=== PATIENT | male | born 2000 | race African-American/Black ===

== ENCOUNTER 2018-12-12 20:23 | Emergency (ER) | payer OTHER ==
[2018-12-12] MEDS ORDERED: NS 0.9% 1000 ML** 1,000 ML IV ONE (22:38)
[2018-12-12] MEDS ORDERED: Metoclopramide IV* 5 MG/ML 2 ML VIAL IV SLOW PU ONE (22:38)
[2018-12-12] MEDS ORDERED: diPHENhydraMINE IV* 50 MG/ML 1 ml VIAL (BENADRYL) IV ONE (22:38)
[2018-12-12] MEDS ORDERED: Ketorolac INJ* 30 MG/ML 1 ML VIAL IV PUSH ONE (22:38)
--- NOTE | 2018-12-12 22:38 | ED ---
Headache - HPI Summary HPI Summary: Pt is a 18 y/o M presenting to the ED with a chief complaint of a headache onset four days ago. He states it started in a localized spot above his L protestant , and the next day it moved to his sinuses, and the next day moved to his bilateral temples. The pt reports nausea. He denies vomiting, fever, or photophobia. Looking at screens increases the pain, nothing alleviates it. - History Of Current Complaint Chief Complaint: EDHeadache Stated Complaint: HEADACHE/NAUSEA/VISION PROBLEM PER PT Time Seen by Provider: 12/12/18 22:30 Hx Obtained From: Patient Onset/Duration: Sudden Onset, Started days ago, Still Present Initially Headache Was: Moderate Currently Pain Is: Moderate Timing: Constant, Days Character: Pressure Location of Headache: Other: - location moves, see HPI summary Aggravating Factor: Other - screens Allevating Factors: Nothing Associated Signs And Symptoms: Nausea - Allergies/Home Medications Allergies/Adverse Reactions: Allergies Allergy/AdvReac Type Severity Reaction Status Date / Time Penicillins Allergy Severe Unknown Verified 06/21/18 12:20 Reaction Details bee stings Allergy Severe Swelling Uncoded 06/21/18 12:20 PMH/Surg Hx/FS Hx/Imm Hx Previously Healthy: Yes Endocrine/Hematology History: Denies: Hx Diabetes Cardiovascular History: Denies: Hx Hypertension, Hx Pacemaker/ICD, Other Cardiovascular Problems/ Disorders Respiratory History: Reports: Hx Asthma - Albuterol, hasn't used in months. Thinks he is outgrowning Denies: Other Respiratory Problems/Disorders GI History: Denies: Other GI Disorders History: Denies: Hx Renal Disease, Other Problems/Disorders Musculoskeletal History: Reports: Other Musculoskeletal History - Ganglion right wrist Sensory History: Denies: Hx Contacts or Glasses, Hx Hearing Aid Opthamlomology History: Denies: Hx Contacts or Glasses Neurological History: Reports: Hx Nerve Disease - ganglion cyst right wrist Denies: Other Neuro Impairments/Disorders Psychiatric History: Reports: Hx Anxiety Denies: Hx Panic Disorder - Surgical History Surgery Procedure, Year, and Place: HERNIA Hx Anesthesia Reactions: No Infectious Disease History: No Infectious Disease History: Denies: Traveled Outside the [place] in Last 30 Days - Family History Known Family History: Negative: Renal Disease - Social History Alcohol Use: Occasionally Hx Substance Use: No Substance Use Type: Reports: None Hx Tobacco Use: No Smoking Status (MU): Never Smoked Tobacco Review of Systems Negative: Fever Negative: Photophobia Positive: Nausea. Negative: Vomiting Positive: Headache All Other Systems Reviewed And Are Negative: Yes Physical Exam - Summary Physical Exam Summary: VITAL SIGNS: Reviewed. GENERAL: Patient is a well-developed and nourished male who is lying comfortable in the stretcher. Patient is not in any acute respiratory distress. HEAD AND FACE: No signs of trauma. No ecchymosis, hematomas or skull depressions. No sinus tenderness. EYES: PERRLA, EOMI x 2, No injected conjunctiva, no nystagmus. EARS: Hearing grossly intact. Ear canals and tympanic membranes are within normal limits. MOUTH: Oropharynx within normal limits. NECK: Supple, trachea is midline, no adenopathy, no JVD, no carotid bruit, no c- spine tenderness, neck with full ROM. CHEST: Symmetric, no tenderness at palpation LUNGS: Clear to auscultation bilaterally. No wheezing or crackles. CVS: Regular rate and rhythm, S1 and S2 present, no murmurs or gallops appreciated. ABDOMEN: Soft, non-tender. No signs of distention. No rebound no guarding, and no masses palpated. Bowel sounds are normal. EXTREMITIES: FROM in all major joints, no edema, no cyanosis or clubbing. NEURO: Alert and oriented x 3. No acute neurological deficits. Speech is normal and follows commands. SKIN: Dry and warm GCS: 15 Triage Information Reviewed: Yes Vital Signs On Initial Exam: Initial Vitals Temp Pulse Resp BP Pulse Ox 98.8 F 84 15 125/66 97 12/12/18 20:37 12/12/18 20:37 12/12/18 20:37 12/12/18 20:37 12/12/18 20:37 Vital Signs Reviewed: Yes Diagnostics - Vital Signs Vital Signs Temp Pulse Resp BP Pulse Ox 12/12/18 20:37 98.8 F 84 15 125/66 97 - Laboratory Result Diagrams: 12/12/18 22:49 12/12/18 22:49 Lab Statement: Any lab studies that have been ordered have been reviewed, and results considered in the medical decision making process. - CT Brain CT CT Interpretation Completed By: Radiologist Summary of CT Findings: Negative noncontrast CT without change from 09/06/2012. ED physician has reviewed this report. Sinuses CT CT Interpretation Completed By: Radiologist Summary of CT Findings: Negative CT sinuses. No sinus mucosal thickening. ED physician has reviewed this report. Headache Course/Dx - Course Course Of Treatment: Pt is a 18 y/o M presenting to the ED with a chief complaint of a headache onset four days ago. The pt reports nausea. He denies vomiting, fever, or photophobia. Looking at screens increases the pain, nothing alleviates it. Brain CT shows negative noncontrast CT without change from 09/06. Sinuses CT shows negative CT sinuses. No sinus mucosal thickening. Results discussed with the pt. He will be d/c'ed with a dx of headache and instructions to f/u with his primary care provider. The pt is agreeable with this plan. - Diagnoses Provider Diagnoses: Headache Discharge - Sign-Out/Discharge Documenting (check all that apply): Patient Departure Patient Received Moderate/Deep Sedation with Procedure: No - Discharge Plan Condition: Stable Disposition: HOME Referrals: Saurabh White, [employer] [Primary Care Provider] - Additional Instructions: Please follow up with your primary care provider in 2-3 days. Return to the emergency department with any new or worsening symptoms. - Attestation Statements Document Initiated by Scribe: Yes Documenting Scribe: Kathy Chisholm Provider For Whom Jose Luis is Documenting (Include Credential): Tanesha Wolf MD. Scribe Attestation: Kathy Polanco scribed for aTnesha Wolf MD. on 12/13/18 at 0001. Status of Scribe Document: Ready
[2018-12-12 22:55] LABS: ABS Basophils 0 10^3/ul (0-0.2); ABS Eosinophils 0 10^3/ul (0-0.6); ABS Lymphocytes 2.6 10^3/ul (1.0-4.8); ABS Monocytes 0.4 10^3/ul (0-0.8); ABS Neutrophils 2.2 10^3/ul (1.5-7.7); ABS Nucleated RBC 0 10^3/ul; Eosinophil % 0.8 %; Hematocrit 46 % (36-46); Hemoglobin 15.8 g/dL (14.0-18.0); Lymphocyte % 49.6 %; Mean Corpuscular HGB Conc 34 g/dL (31-36); Mean Corpuscular Hemoglobin 27 pg (27-31); Mean Corpuscular Volume 79 fL (80-94); Mean Platelet Volume 8.2 fL (7.4-10.4); Nucleated Red Blood Cells % 0.3; Platelet Count 202 10^3/uL (150-450); Red Blood Count 5.84 10^6 /uL (4.18-5.48); Red Cell Distribution Width 14 % (10.5-15); White Blood Count 5.3 10^3/uL (3.5-10.8)
[2018-12-12 23:13] LABS: Albumin 4.9 g/dL (3.2-5.2); Albumin/Globulin Ratio 1.8 (1-3); BUN/Creatinine Ratio 11.6 (8-20); Calcium 10.1 mg/dL (8.6-10.3); EGFR African American 101.1 (>60); EGFR Non-African American 83.6 (>60); Globulin 2.8 g/dL (2-4); Potassium 4.3 mmol/L (3.5-5.0); Total Bilirubin 0.7 mg/dL (0.2-1.0); Total Protein 7.7 g/dL (6.4-8.9)
[2018-12-13 00:27] VITALS: BP 101/54
== END 2018-12-13 00:27 | disposition home or self-care (01) ==
LOC: ED 20:23
DX: R51 Headache (principal); Z88.0 Allergy status to penicillin
CPT/HCPCS: 36415; 70450; 70486; 80053; 85025; 86703; 96361; 96374; 96375; 99283; J1200; J1885; J2765

== ENCOUNTER 2019-05-18 10:58 | Emergency (ER) | payer SELFPAY ==
[2019-05-18 11:17] VITALS: BP 111/78
--- NOTE | 2019-05-18 11:19 | UC ---
Knee Pain HPI - HPI Summary HPI Summary: 19-year-old male presents with complaints of persistent left knee pain. States 3 weeks ago he was break dancing and came down with his left leg bent underneath him causing a hyperflexion injury to the knee. States he felt a "pop " in the knee at that time. Was able to walk and bear weight after the injury. He was evaluated at [facility] urgent care 2 days later and states he had a normal x-ray at that time and that he was recommended physical therapy. Patient presents today for evaluation because he has continued to have pain and discomfort in the knee. Denies any numbness or tingling. - History of Current Complaint Stated Complaint: LEG INJURY Time Seen by Provider: 05/18/19 11:11 Hx Obtained From: Patient - Allergies/Home Medications Allergies/Adverse Reactions: Allergies Allergy/AdvReac Type Severity Reaction Status Date / Time Penicillins Allergy Severe Unknown Verified 05/18/19 11:15 Reaction Details bee stings Allergy Severe Swelling Uncoded 05/18/19 11:15 PMH/Surg Hx/FS Hx/Imm Hx Previously Healthy: Yes - Surgical History Surgical History: Yes Surgery Procedure, Year, and Place: HERNIA - Family History Known Family History: Positive: Non-Contributory - Social History Occupation: Employed Full-time Lives: With Family Alcohol Use: Occasionally Substance Use Type: None Smoking Status (MU): Never Smoked Tobacco - Immunization History Most Recent Influenza Vaccination: 2012 Vaccination Up to Date: Yes Review of Systems All Other Systems Reviewed And Are Negative: Yes Constitutional: Positive: Negative Skin: Positive: Negative Respiratory: Positive: Negative Cardiovascular: Positive: Negative Gastrointestinal: Positive: Negative Genitourinary: Positive: Negative Motor: Negative: Weakness Neurovascular: Negative: Decreased Sensation Musculoskeletal: Positive: Other: - See HPI Neurological: Positive: Negative Is Patient Immunocompromised?: No Physical Exam - Summary Physical Exam Summary: GENERAL APPEARANCE: Well developed, well nourished, alert and cooperative, and appears to be in no acute distress. CARDIAC: Normal S1 and S2. No S3, S4 or murmurs. Rhythm is regular. There is no peripheral edema, cyanosis or pallor. Extremities are warm and well perfused. Capillary refill is less than 2 seconds. Peripheral pulses intact. LUNGS: Clear to auscultation without rales, rhonchi, wheezing or diminished breath sounds. ABDOMEN: Positive bowel sounds. Soft, nondistended, nontender. No guarding or rebound. No masses or hepatosplenomegally. MUSKULOSKELETAL: Normal muscular development. Normal gait. EXTREMITIES: Mild tenderness to the medial aspect of the left knee joint without gross deformity, ecchymosis, erythema, or edema. Full ROM. No laxity. Circulation and sensation intact. SKIN: Skin normal color, texture and turgor. Triage Information Reviewed: Yes Vital Signs Reviewed: Yes Knee Pain Course/Dx - Course Course Of Treatment: 19-year-old male presents with complaints of persistent left knee pain. States 3 weeks ago he was break dancing and came down with his left leg bent underneath him causing a hyperflexion injury to the knee. States he felt a "pop " in the knee at that time. Was able to walk and bear weight after the injury. He was evaluated at [facility] urgent care 2 days later and states he had a normal x-ray at that time and that he was recommended physical therapy. Patient presents today for evaluation because he has continued to have pain and discomfort in the knee. Denies any numbness or tingling. Afebrile. VSS. Patient had mild tenderness to the medial aspect of the left knee joint without gross deformity, ecchymosis, erythema, or edema. Full ROM. No laxity. Circulation and sensation intact. Remainder of exam unremarkable. I discussed with the patient that based on his history and physical I did not feel a repeat of a plain knee x-ray is warranted at this time and that he would be better served with evaluation by orthopedic surgery as he probably needs an MRI for further evaluation of injury to the soft tissues of the knee. Patient is agreeable to this. Recommending continued conservative treatment with OTC analgesics and RICE. He is to call and make an appointment with ortho in 5-7 days. Anticipatory guidance and warning symptoms reviewed with patient. Verbalizes understanding and agrees with POC. - Differential Dx/Diagnosis Provider Diagnosis: Left knee pain Discharge ED - Sign-Out/Discharge Documenting (check all that apply): Patient Departure All imaging exams completed and their final reports reviewed: No Studies - Discharge Plan Condition: Stable Disposition: HOME Patient Education Materials: Knee Pain (ED) Referrals: Vero Rogers MD [Medical Doctor] - 5 Days (Call today for an appointment.) Additional Instructions: Rest the knee as much as possible. You may walk and bear weight as tolerated. You should avoid strenuous activities or any activity that causes pain. Apply ice to the affected area for 15-20 minutes at least 4 times a day to help with the pain and swelling. Use an DEDE wrap or compression sleeve to help manage swelling. Take acetaminophen (Tylenol) or ibuprofen (Advil, Motrin) according to directions as needed for pain. Follow up with orthopedic surgery in 5-7 days if symptoms do not improve. Call for appointment. Seek immediate medical attention if you have severe pain not managed with pain medication, you are unable to walk or bear any weight, develop numbness or tingling in the leg, foot, or toes, or have any worsening of symptoms. - Billing Disposition and Condition Condition: STABLE Disposition: Home
== END 2019-05-18 11:36 | disposition home or self-care (01) ==
LOC: UCEAST 10:58
DX: M25.562 Pain in left knee (principal); Z88.0 Allergy status to penicillin
CPT/HCPCS: 99211; G0463

== ENCOUNTER 2019-05-21 00:05 | Emergency (ER) | payer SELFPAY ==
[2019-05-21] MEDS ORDERED: LORazepam INJ* 2 MG/ML 1 ML VIAL IM ONE (00:12)
[2019-05-21] MEDS ORDERED: diPHENhydraMINE IV* 50 MG/ML 1 ml VIAL (BENADRYL) IM ONE (00:12)
[2019-05-21] MEDS ORDERED: Haloperidol INJ IV/IM* 5 MG/ML AMP IM ONE (00:12)
[2019-05-21] MEDS ORDERED: LORazepam INJ* 2 MG/ML 1 ML VIAL ONE (00:13)
[2019-05-21] MEDS ORDERED: Haloperidol INJ IV/IM* 5 MG/ML AMP ONE (00:17)
[2019-05-21] MEDS ORDERED: diPHENhydraMINE IV* 50 MG/ML 1 ml VIAL (BENADRYL) ONE (00:17)
--- NOTE | 2019-05-21 00:29 | ED ---
Substance Abuse/Use - HPI Summary HPI Summary: LEVEL 5 CAVEAT - ALCOHOL INTOXICATION This patient is a 19 year old M presenting to [facility] by EMS with a chief complaint of alcohol intoxication since prior to arrival. Per EMS, Pt drank alcohol and took a multitude of drugs; then fell down. Pt hit back of head. - History Of Current Complaint Chief Complaint: EDSubstanceAbuse Stated Complaint: ETOH PER EMS Hx Obtained From: EMS Onset/Duration of Drug/ETOH Abuse: Hours Overdose Characteristics: Oral Timing Of Abuse: Binge Use Character: Manic Aggravating Factor(s): Nothing Alleviating Factor(s): Nothing Associated Signs And Symptoms: Agitated, Nausea, Vomiting Related Hx: Possible Multi Drug Ingestion - Allergies/Home Medications Allergies/Adverse Reactions: Allergies Allergy/AdvReac Type Severity Reaction Status Date / Time Penicillins Allergy Severe Unknown Verified 05/21/19 05:12 Reaction Details bee stings Allergy Severe Swelling Uncoded 05/21/19 05:12 PMH/Surg Hx/FS Hx/Imm Hx Previously Healthy: No - LEVEL 5 CAVEAT - ALCOHOL INTOXICATION Endocrine/Hematology History: Denies: Hx Diabetes Cardiovascular History: Denies: Hx Hypertension, Hx Pacemaker/ICD, Other Cardiovascular Problems/ Disorders Respiratory History: Reports: Hx Asthma - Albuterol, hasn't used in months. Thinks he is outgrowning Denies: Other Respiratory Problems/Disorders GI History: Denies: Other GI Disorders History: Denies: Hx Renal Disease, Other Problems/Disorders Musculoskeletal History: Reports: Other Musculoskeletal History - Ganglion right wrist Sensory History: Denies: Hx Contacts or Glasses, Hx Hearing Aid Opthamlomology History: Denies: Hx Contacts or Glasses Neurological History: Reports: Hx Nerve Disease - ganglion cyst right wrist Denies: Other Neuro Impairments/Disorders Psychiatric History: Reports: Hx Anxiety Denies: Hx Panic Disorder - Surgical History Surgery Procedure, Year, and Place: HERNIA Hx Anesthesia Reactions: No Infectious Disease History: No Infectious Disease History: Denies: Traveled Outside the [place] in Last 30 Days - Family History Known Family History: Negative: Renal Disease - Social History Occupation: Student Alcohol Use: Occasionally Hx Substance Use: No Substance Use Type: Reports: None Hx Tobacco Use: No Smoking Status (MU): Never Smoked Tobacco - Additional Comments History Additional Comments: LEVEL 5 CAVEAT - ALCOHOL INTOXICATION Review of Systems Negative: Fever Positive: Other - head pain All Other Systems Reviewed And Are Negative: No - Comments Additional Review of Systems Comments: LEVEL 5 CAVEAT - ALCOHOL INTOXICATION Physical Exam - Summary Physical Exam Summary: LEVEL 5 CAVEAT - ALCOHOL INTOXICATION Appearance: Well-appearing, Well-nourished, lying in bed comfortably; Awake and alert uncooperative, refusing needed intervention, Intoxicated. Skin: Warm, dry, no obvious rash Eyes: sclera anicteric, no conjunctival pallor ENT: mucous membranes moist, pharynx appears normal HEAD: Occipital hematoma Neck: Supple, nontender Respiratory: Clear to auscultation, no signs of respiratory distress Cardiovascular: Normal S1, S2. No murmurs. Normal distal pulses in tibial and radial bilaterally. Abdomen: Soft, nontender, normal active bowel sounds present Musculoskeletal: Normal, Strength/ROM Intact Neurological: A&Ox3, awake and alert, mentation is normal, speech is fluent and appropriate Psychiatric: affect is normal, does not appear anxious or depressed Triage Information Reviewed: Yes Vital Signs On Initial Exam: Initial Vitals Temp Pulse Resp BP Pulse Ox 98.4 F 109 14 136/92 98 05/21/19 00:08 05/21/19 00:08 05/21/19 00:08 05/21/19 00:08 05/21/19 00:08 Vital Signs Reviewed: Yes Diagnostics - Vital Signs Vital Signs Temp Pulse Resp BP Pulse Ox 05/21/19 00:08 98.4 F 109 14 136/92 98 - Laboratory Result Diagrams: 05/21/19 00:42 05/21/19 00:42 Lab Statement: Any lab studies that have been ordered have been reviewed, and results considered in the medical decision making process. - CT Brain CT CT Interpretation Completed By: Radiologist Summary of CT Findings: Brain CT reveals, per radiologist, No acute intracranial abnormality. ED physician has reviewed this radiology report. Cervical Spine CT CT Interpretation Completed By: Radiologist Summary of CT Findings: Cervical Spine CT reveals, per radiologist, IMPRESSION: No acute abnormality. ED physician has reviewed this radiology report. Course/Dx - Course Course Of Treatment: LEVEL 5 CAVEAT - ALCOHOL INTOXICATION. This patient is a 19 year old M presenting to [facility] by EMS with a chief complaint of alcohol intoxication since prior to arrival. Per EMS, Pt drank alcohol and took a multitude of drugs; then fell down. Pt hit back of head. Physical exam findings are nml, except pt is intoxicated and uncooperative. Pt has a occipital hematoma. Brain CT reveals, per radiologist, No acute intracranial abnormality. ED physician has reviewed this radiology report. Cervical Spine CT reveals, per radiologist, IMPRESSION: No acute abnormality. ED physician has reviewed this radiology report. Blood work obtained. Serum Alcohol is 101. U cannabinoids Screen is a presumptive positive. In the ED course the patient was given Benadryl IV, Haldol Inj IV, and Ativan. Patient will be discharged. The patient is agreeable with this plan. - Diagnoses Provider Diagnoses: Alcohol intoxication, Head injury, acute Discharge ED - Sign-Out/Discharge Documenting (check all that apply): Patient Departure - Discharge Patient Received Moderate/Deep Sedation with Procedure: No - Discharge Plan Condition: Improved Disposition: HOME Patient Education Materials: Abuse of Alcohol (ED), Polysubstance Abuse (ED) Referrals: [facility] [Outside] Saurabh White, [employer] [Primary Care Provider] - - Billing Disposition and Condition Condition: IMPROVED Disposition: Home - Attestation Statements Document Initiated by Janele: Yes Documenting Scribe: Filomena Wren Provider For Whom Scribe is Documenting (Include Credential): Carrillo Cervantes MD Scribe Attestation: Filomena Polanco scribed for Carrillo Cervantes MD on 05/22/19 at 0618. Scribe Documentation Reviewed: Yes Provider Attestation: The documentation as recorded by the [email or web address] accurately reflects the service I personally performed and the decisions made by me, Carrillo Cervantes MD Status of Scribe Document: Viewed
[2019-05-21 00:54] LABS: ABS Monocytes 0.6 10^3/ul (0-0.8); ABS Neutrophils 5.2 10^3/ul (1.5-7.7); Eosinophil % 0.3 %; Hematocrit 40 % (42-52); Hemoglobin 13.4 g/dL (14.0-18.0); Mean Corpuscular HGB Conc 34 g/dL (31-36); Mean Corpuscular Hemoglobin 27 pg (27-31); Mean Corpuscular Volume 80 fL (80-94); Mean Platelet Volume 8.3 fL (7.4-10.4); Nucleated Red Blood Cells % 0.2; Platelet Count 187 10^3/uL (150-450); Red Blood Count 4.99 10^6 /uL (4.18-5.48); Red Cell Distribution Width 13 % (10-15); White Blood Count 7.9 10^3/uL (3.5-10.8)
[2019-05-21 01:10] LABS: Albumin 4.3 g/dL (3.2-5.2); Albumin/Globulin Ratio 1.9 (1-3); BUN/Creatinine Ratio 12.3 (8-20); Calcium 8.5 mg/dL (8.6-10.3); EGFR African American 106.7 (>60); EGFR Non-African American 88.2 (>60); Globulin 2.3 g/dL (2-4); Potassium 3.2 mmol/L (3.5-5.0); Total Bilirubin 0.4 mg/dL (0.2-1.0); Total Protein 6.6 g/dL (6.4-8.9)
[2019-05-21 01:25] LABS: Urine Benzodiazepine Screen None Detected (None Detect); Urine Opiates Screen None Detected (None Detect)
[2019-05-21 06:41] VITALS: BP 100/42
== END 2019-05-21 06:39 | disposition home or self-care (01) ==
LOC: ED 00:05
DX: F10.929 Alcohol use, unspecified with intoxication, unspecified (principal); S09.90XA Unspecified injury of head, initial encounter; X58.XXXA Exposure to other specified factors, initial encounter; Y92.9 Unspecified place or not applicable; J45.909 Unspecified asthma, uncomplicated; F41.9 Anxiety disorder, unspecified; Z79.899 Other long term (current) drug therapy; Z88.0 Allergy status to penicillin
CPT/HCPCS: 36415; 70450; 72125; 80053; 80307; 80320; 85025; 96372; 99284; G0480; J1200; J1630; J2060

== ENCOUNTER 2019-07-18 23:45 | Emergency (ER) | payer SELFPAY ==
--- NOTE | 2019-07-19 01:10 | ED ---
Neck Pain - HPI Summary HPI Summary: The patient is a 19 y/o M presenting to [facility] with a chief complaint of intermittent pain in the left posterior neck onset two days ago. He reports that he noticed a knot in the left posterior neck two days ago, and he has since been experiencing nausea and dizziness, but he has had a stiff neck for about a week. He also notes a lump in the thoracic back along the medial border of the left scapula for a while. He denies any fever, cough, CP, vomiting, diarrhea, or changes in urination, vision, or appetite. Currently, his symptoms are rated 3/10 in severity. The pain is aggravated by touch and movement of the neck. He states concern for anemia because he always has cold hands. He denies any drug use, but he states that he drank alcohol last night. PMHx: asthma, anxiety, leg vein surgery. Nonsmoker, ocasional EtOH, no substance use. Medications reviewed. Allergies noted. - History of Current Complaint Chief Complaint: EDNeckComplaint Stated Complaint: KNOT IN BACK OF NECK PER PT Time Seen by Provider: 07/19/19 00:36 Hx Obtained From: Patient Onset/Duration Of Injury/Symptoms: Days - two Mechanism Of Injury: No Known Trauma Timing: Lasting Days Onset/Duration: Gradual Onset, Still Present Severity Initially: Mild Severity Currently: Mild Pain Intensity: 3 Pain Scale Used: 0-10 Numeric Character: Stiff Aggravating Factors: Position, Movement, Other: - touch Alleviating Factors: Position - Allergies/Home Medications Allergies/Adverse Reactions: Allergies Allergy/AdvReac Type Severity Reaction Status Date / Time Penicillins Allergy Severe Unknown Verified 05/21/19 05:12 Reaction Details bee stings Allergy Severe Swelling Uncoded 05/21/19 05:12 PMH/Surg Hx/FS Hx/Imm Hx Endocrine/Hematology History: Denies: Hx Diabetes Cardiovascular History: Denies: Hx Hypertension, Hx Pacemaker/ICD, Other Cardiovascular Problems/ Disorders Respiratory History: Reports: Hx Asthma - Albuterol, hasn't used in months. Thinks he is outgrowning Denies: Other Respiratory Problems/Disorders GI History: Denies: Other GI Disorders History: Denies: Hx Renal Disease, Other Problems/Disorders Musculoskeletal History: Reports: Other Musculoskeletal History - Ganglion right wrist Sensory History: Denies: Hx Contacts or Glasses, Hx Hearing Aid Opthamlomology History: Denies: Hx Contacts or Glasses Neurological History: Reports: Hx Nerve Disease - ganglion cyst right wrist Denies: Other Neuro Impairments/Disorders Psychiatric History: Reports: Hx Anxiety Denies: Hx Panic Disorder - Surgical History Surgical History: Yes Surgery Procedure, Year, and Place: HERNIA, vein surgery in leg Hx Anesthesia Reactions: No Infectious Disease History: No Infectious Disease History: Denies: Traveled Outside the [place] in Last 30 Days - Family History Known Family History: Positive: Diabetes Negative: Renal Disease - Social History Alcohol Use: Occasionally Hx Substance Use: No Substance Use Type: Reports: None Hx Tobacco Use: No Smoking Status (MU): Never Smoked Tobacco Review of Systems - ROS Summary Review of Systems Summary: Home Medications Medication Instructions Recorded Confirmed Type Albuterol HFA INHALER* 2 puff INH QID 06/21/18 05/21/19 History Negative: Fever Negative: Chest Pain Negative: Cough Positive: Nausea. Negative: Vomiting, Diarrhea, Other - change in appetite Positive: no symptoms reported Positive: Other - left posterior neck pain, pain with lump in thoracic back Neurological: Other - dizziness All Other Systems Reviewed And Are Negative: Yes Physical Exam - Summary Physical Exam Summary: General: Well-developed, Well-nourished male. No acute distress. HEENT: Normocephalic, Atraumatic. Eyes: Conjuctiva normal, PERRL. Ears: TMs within normal limits. Nares: (-) discharge, (-) erythema. Oropharynx: Clear, mucous membranes moist, (-) exudates. Neck: Soft, FROM. 4mm subcutaneous firm mass under his left trapezius muscle that is freely mobile, nontender, and not warm. (-) lymphadenopathy, (-) thyromegaly, (-) JVD. Cardiovascular: Normal sinus rhythm, (-) murmur. Lungs: Clear to auscultation bilaterally (-) wheezes, (-) rales, (-) rhonchi. Abdomen: Soft, non-tender, non-distended, (-) organomegaly, normal bowel sounds. Back: 1cm soft firm freely mobile subcutaneous tissue along the medial left scapular area, (-) CVA tenderness Extremities: No edema. Skin: Warm, dry, (-) rash. Neuro: Alert and oriented x3, no focal deficits. Psychiatric: Mood normal, affect normal. Triage Information Reviewed: Yes Vital Signs On Initial Exam: Initial Vitals Temp Pulse Resp BP Pulse Ox 98.9 F 99 18 136/77 100 07/18/19 23:47 07/18/19 23:47 07/18/19 23:47 07/18/19 23:47 07/18/19 23:47 Vital Signs Reviewed: Yes Procedures - Sedation Patient Received Moderate/Deep Sedation with Procedure: No Diagnostics - Vital Signs Vital Signs Temp Pulse Resp BP Pulse Ox 07/18/19 23:47 98.9 F 99 18 136/77 100 - Laboratory Result Diagrams: 07/19/19 01:59 07/19/19 01:59 Lab Statement: Any lab studies that have been ordered have been reviewed, and results considered in the medical decision making process. - EKG 0158 Cardiac Rate: NL - 77 BPM EKG Rhythm: Sinus Rhythm Summary of EKG Findings: EKG at 0158 reveals normal sinus rhythm with a rate of 77 BPM, ST elevations probable normal repol pattern. No STEMI. This EKG was reviewed and interpreted by Dr. Gilliam. Re-Evaluation - Re-Evaluation First Eval Re-Evaluation Time: 03:30 Change: Improved Comment: I have discussed results with the patient and symptoms have resolved. Discussed symptoms that warrant immediate return to ED. Neck Course/Dx - Course Course Of Treatment: 19-year-old male with chronic complaint of lump in the left upper back area. Also presenting with 2 day history of bump in his left neck area. Feeling of nausea and dizziness for the last 2 days as well. He also notes that his fingers and toes are always cold. He is currently in college and runs track. He has no further localizing symptoms. Exam is consistent with a lipoma on his back. Small lymph node in his neck. Workup is essentially otherwise negative although non-diagnostic. Advised patient to drink plenty of fluids and rest. Follow-up with PCP. Follow up sooner for any worsening symptoms. - Diagnoses Provider Diagnoses: Dizziness, Nausea, Lymphadenopathy of head and neck Discharge ED - Sign-Out/Discharge Documenting (check all that apply): Patient Departure - Patient will be discharged home. - Discharge Plan Condition: Stable Disposition: HOME Patient Education Materials: Acute Nausea and Vomiting (ED), Dizziness (ED) Referrals: Saurabh White NP [Primary Care Provider] - 3 Days Additional Instructions: Please follow up with your primary care physician within three days. Please return to ED for any new or worsening symptoms. - Billing Disposition and Condition Condition: STABLE Disposition: Home - Attestation Statements Document Initiated by Jose Luis: Yes Documenting Scribe: Ashli Galvan Provider For Whom Jose Luis is Documenting (Include Credential): Dr. Carolin Gilliam MD Scribe Attestation: Ashli Polanco scribed for Dr. Carolin Gilliam MD on 07/19/19 at 0539. Scribe Documentation Reviewed: Yes Provider Attestation: The documentation as recorded by the Ashli vital accurately reflects the service I personally performed and the decisions made by me, Dr. Carolin Gilliam MD Status of Scribe Document: Viewed
[2019-07-19 02:06] LABS: ABS Basophils 0.1 10^3/ul (0-0.2); ABS Eosinophils 0.1 10^3/ul (0-0.6); ABS Lymphocytes 2.5 10^3/ul (1.0-4.8); ABS Monocytes 0.4 10^3/ul (0-0.8); ABS Neutrophils 1.8 10^3/ul (1.5-7.7); Hematocrit 43 % (42-52); Hemoglobin 15.1 g/dL (14.0-18.0); Lymphocyte % 51.6 %; Mean Corpuscular HGB Conc 35 g/dL (31-36); Mean Corpuscular Hemoglobin 28 pg (27-31); Mean Corpuscular Volume 79 fL (80-94); Mean Platelet Volume 8.4 fL (7.4-10.4); Nucleated Red Blood Cells % 0.2; Platelet Count 197 10^3/uL (150-450); Red Blood Count 5.46 10^6 /uL (4.18-5.48); Red Cell Distribution Width 14 % (10-15); White Blood Count 4.9 10^3/uL (3.5-10.8)
[2019-07-19 02:23] LABS: ALT 16 U/L (7-52); AST 22 U/L (13-39); Albumin 4.7 g/dL (3.2-5.2); Alkaline Phosphatase 70 U/L (34-104); Anion Gap 5 mmol/L (2-11); BUN/Creatinine Ratio 18.2 (8-20); Blood Urea Nitrogen 18 mg/dL (6-24); CO2 Carbon Dioxide 30 mmol/L (22-32); Calcium 9.8 mg/dL (8.6-10.3); Chloride 105 mmol/L (101-111); EGFR African American 115.5 (>60); EGFR Non-African American 95.4 (>60); Globulin 2.4 g/dL (2-4); Glucose 73 mg/dL (70-100); Potassium 3.9 mmol/L (3.5-5.0); Sodium 140 mmol/L (135-145); Total Protein 7.1 g/dL (6.4-8.9)
[2019-07-19 02:48] LABS: INR 1.03 (0.82-1.09)
[2019-07-19 02:50] LABS: Urine Appearance Clear; Urine Bacteria Absent (Absent); Urine Bilirubin Negative (Negative); Urine Blood Negative (Negative); Urine Color Straw; Urine Glucose Negative (Negative); Urine Ketones Negative (Negative); Urine Nitrite Negative (Negative); Urine Protein Negative (Negative); Urine Red Blood Cell Absent (Absent); Urine Specific Gravity 1.011 (1.010-1.030); Urine Urobilinogen Negative (Negative); Urine White Blood Cell 1+(6-10/hpf) (Absent)
[2019-07-19 02:57] LABS: Alcohol < 10 mg/dL (<10)
[2019-07-19 03:13] LABS: TSH (Thyroid Stimulating Horm) 1.42 mcIU/mL (0.34-5.60)
[2019-07-19 03:19] LABS: Urine Benzodiazepine Screen None Detected (None Detect); Urine Opiates Screen None Detected (None Detect)
[2019-07-19 03:35] VITALS: BP 143/72
== END 2019-07-19 03:34 | disposition home or self-care (01) ==
LOC: ED 23:45
DX: R59.1 Generalized enlarged lymph nodes (principal); M54.2 Cervicalgia; Z88.0 Allergy status to penicillin; R42 Dizziness and giddiness; R11.0 Nausea; F41.9 Anxiety disorder, unspecified
CPT/HCPCS: 36415; 80053; 80307; 80320; 81003; 81015; 83605; 84443; 84484; 85025; 85610; 87086; 93005; 99282; G0480

== ENCOUNTER 2019-08-25 18:15 | Emergency (ER) | payer SELFPAY ==
[2019-08-25 22:04] LABS: ABS Eosinophils 0.1 10^3/ul (0-0.6); ABS Lymphocytes 3.3 10^3/ul (1.0-4.8); ABS Monocytes 0.5 10^3/ul (0-0.8); ABS Neutrophils 2.2 10^3/ul (1.5-7.7); Eosinophil % 1.7 %; Hematocrit 42 % (42-52); Hemoglobin 14.3 g/dL (14.0-18.0); Lymphocyte % 53.5 %; Mean Corpuscular HGB Conc 34 g/dL (31-36); Mean Corpuscular Hemoglobin 27 pg (27-31); Mean Corpuscular Volume 79 fL (80-94); Mean Platelet Volume 7.8 fL (7.4-10.4); Nucleated Red Blood Cells % 0.3; Platelet Count 217 10^3/uL (150-450); Red Blood Count 5.35 10^6 /uL (4.18-5.48); Red Cell Distribution Width 14 % (10-15); White Blood Count 6.2 10^3/uL (3.5-10.8)
[2019-08-25 22:20] LABS: ALT 22 U/L (7-52); AST 20 U/L (13-39); Albumin 4.3 g/dL (3.2-5.2); Albumin/Globulin Ratio 1.7 (1-3); Alkaline Phosphatase 51 U/L (34-104); Anion Gap 4 mmol/L (2-11); BUN/Creatinine Ratio 13.1 (8-20); Blood Urea Nitrogen 14 mg/dL (6-24); C Reactive Protein < 1.00 mg/L (<8.01); CO2 Carbon Dioxide 28 mmol/L (22-32); Chloride 107 mmol/L (101-111); EGFR African American 105.6 (>60); EGFR Non-African American 87.2 (>60); Globulin 2.5 g/dL (2-4); Glucose 90 mg/dL (70-100); Sodium 139 mmol/L (135-145); Total Protein 6.8 g/dL (6.4-8.9)
--- NOTE | 2019-08-25 22:39 | ED ---
Headache - HPI Summary HPI Summary: Patient complains of new onset constant left side headache 3 days with associated dizziness and mild imbalance. States history of tension headaches but this is different. Denies trauma, fever, cough, sore throat, ear pain, CP, SOB, N/V/D, abdominal pain, change in urine, change in BM. Ibuprofen providing no relief. Medical history is none. - History Of Current Complaint Chief Complaint: EDHeadache Stated Complaint: HEADACHE PER PT Time Seen by Provider: 08/25/19 20:29 Hx Obtained From: Patient Onset/Duration: Gradual Onset, Started days ago Initially Headache Was: Moderate Timing: Constant Character: Throbbing, Pressure Location of Headache: Temporal Aggravating Factor: Exertion, Bright Lights, Other - Computers or phones Allevating Factors: Nothing Associated Signs And Symptoms: Dizziness - Allergies/Home Medications Allergies/Adverse Reactions: Allergies Allergy/AdvReac Type Severity Reaction Status Date / Time Penicillins Allergy Severe Unknown Verified 08/25/19 18:28 Reaction Details bee stings Allergy Severe Swelling Uncoded 05/21/19 05:12 PMH/Surg Hx/FS Hx/Imm Hx Endocrine/Hematology History: Denies: Hx Diabetes Cardiovascular History: Denies: Hx Hypertension, Hx Pacemaker/ICD, Other Cardiovascular Problems/ Disorders Respiratory History: Reports: Hx Asthma - Albuterol, hasn't used in months. Thinks he is outgrowning Denies: Other Respiratory Problems/Disorders GI History: Denies: Other GI Disorders History: Denies: Hx Renal Disease, Other Problems/Disorders Musculoskeletal History: Reports: Other Musculoskeletal History - Ganglion right wrist Sensory History: Denies: Hx Contacts or Glasses, Hx Hearing Aid Opthamlomology History: Denies: Hx Contacts or Glasses EENT History: Denies: Hx Deafness Neurological History: Reports: Hx Nerve Disease - ganglion cyst right wrist Denies: Other Neuro Impairments/Disorders Psychiatric History: Reports: Hx Anxiety Denies: Hx Panic Disorder - Surgical History Surgery Procedure, Year, and Place: HERNIA, vein surgery in leg Hx Anesthesia Reactions: No Infectious Disease History: No Infectious Disease History: Denies: Traveled Outside the [place] in Last 30 Days - Family History Known Family History: Positive: Diabetes Negative: Renal Disease - Social History Alcohol Use: Occasionally Hx Substance Use: No Substance Use Type: Reports: None Hx Tobacco Use: No Smoking Status (MU): Never Smoked Tobacco Review of Systems Constitutional: Negative Eyes: Negative ENT: Negative Cardiovascular: Negative Respiratory: Negative Gastrointestinal: Negative Genitourinary: Negative Musculoskeletal: Negative Skin: Negative Positive: Headache Psychological: Normal All Other Systems Reviewed And Are Negative: Yes Physical Exam - Summary Physical Exam Summary: Neuro exam normal. No tenderness over left temporal. Triage Information Reviewed: Yes Vital Signs On Initial Exam: Initial Vitals Temp Pulse Resp BP Pulse Ox 99.9 F 87 16 128/49 98 08/25/19 18:21 08/25/19 18:21 08/25/19 18:21 08/25/19 18:21 08/25/19 18:21 Vital Signs Reviewed: Yes Appearance: Positive: Well-Appearing Skin: Positive: Warm Head/Face: Positive: Normal Head/Face Inspection Eyes: Positive: Normal ENT: Positive: Normal ENT inspection Neck: Positive: Supple Respiratory/Lung Sounds: Positive: Clear to Auscultation Cardiovascular: Positive: Normal Abdomen Description: Positive: Nontender Musculoskeletal: Positive: Normal Neurological: Positive: Normal Psychiatric: Positive: Normal AVPU Assessment: Alert - Brii Coma Scale Best Eye Response: 4 - Spontaneous Best Motor Response: 6 - Obeys Commands Best Verbal Response: 5 - Oriented Coma Scale Total: 15 Procedures - Sedation Patient Received Moderate/Deep Sedation with Procedure: No Diagnostics - Vital Signs Vital Signs Temp Pulse Resp BP Pulse Ox 08/25/19 18:21 99.9 F 87 16 128/49 98 - Laboratory Lab Results: Lab Results 08/25/19 08/25/19 Range/Units 21:57 21:57 WBC 6.2 (3.5-10.8) 10^3/uL RBC 5.35 (4.18-5.48) 10^6 /uL Hgb 14.3 (14.0-18.0) g/dL Hct 42 (42-52) % MCV 79 L (80-94) fL MCH 27 (27-31) pg MCHC 34 (31-36) g/dL RDW 14 (10-15) % Plt Count 217 (150-450) 10^3/uL MPV 7.8 (7.4-10.4) fL Neut % (Auto) 36.1 % Lymph % (Auto) 53.5 % Woodson % (Auto) 8.0 % Eos % (Auto) 1.7 % Baso % (Auto) 0.7 % Absolute Neuts (auto) 2.2 (1.5-7.7) 10^3/ul Absolute Lymphs (auto) 3.3 (1.0-4.8) 10^3/ul Absolute Monos (auto) 0.5 (0-0.8) 10^3/ul Absolute Eos (auto) 0.1 (0-0.6) 10^3/ul Absolute Basos (auto) 0.0 (0-0.2) 10^3/ul Absolute Nucleated RBC 0.0 10^3/ul Nucleated RBC % 0.3 Sodium 139 (135-145) mmol/L Potassium 4.0 (3.5-5.0) mmol/L Chloride 107 (101-111) mmol/L Carbon Dioxide 28 (22-32) mmol/L Anion Gap 4 (2-11) mmol/L BUN 14 (6-24) mg/dL Creatinine 1.07 (0.67-1.17) mg/dL Est GFR ( Amer) 105.6 (>60) Est GFR (Non-Af Amer) 87.2 (>60) BUN/Creatinine Ratio 13.1 (8-20) Glucose 90 (70-100) mg/dL Calcium 9.0 (8.6-10.3) mg/dL Total Bilirubin 0.40 (0.2-1.0) mg/dL AST 20 (13-39) U/L ALT 22 (7-52) U/L Alkaline Phosphatase 51 (34-104) U/L C-Reactive Protein < 1.00 (<8.01) mg/L Total Protein 6.8 (6.4-8.9) g/dL Albumin 4.3 (3.2-5.2) g/dL Globulin 2.5 (2-4) g/dL Albumin/Globulin Ratio 1.7 (1-3) Result Diagrams: 08/25/19 21:57 08/25/19 21:57 Lab Statement: Any lab studies that have been ordered have been reviewed, and results considered in the medical decision making process. Headache Course/Dx - Course Course Of Treatment: Patient complains of new onset constant left side headache 3 days with associated dizziness and mild imbalance. States history of tension headaches but this is different. Denies trauma, fever, cough, sore throat, ear pain, CP, SOB, N/V/D, abdominal pain, change in urine, change in BM. Ibuprofen providing no relief. Medical history is none. Vital signs within normal limits. CT brain negative. Labs unremarkable. - Diagnoses Provider Diagnoses: Headache Discharge ED - Sign-Out/Discharge Documenting (check all that apply): Patient Departure - Discharge Plan Condition: Stable Disposition: HOME Patient Education Materials: Acute Headache (ED) Referrals: Saurabh White ASSISTANT COMMUNITY MANAGER [Primary Care Provider] - Additional Instructions: Alternate ibuprofen 600 mg with Tylenol 650 mg every 3 hours as needed for headache. Follow-up with primary care. Return to the ED for any new or worsening symptoms. - Billing Disposition and Condition Condition: STABLE Disposition: Home
[2019-08-25 23:10] VITALS: BP 113/65
== END 2019-08-25 22:58 | disposition home or self-care (01) ==
LOC: ED 18:15
DX: R51 Headache (principal); J45.909 Unspecified asthma, uncomplicated; F41.9 Anxiety disorder, unspecified; Z88.0 Allergy status to penicillin
CPT/HCPCS: 36415; 70450; 80053; 85025; 86140; 99282

== ENCOUNTER 2019-12-19 16:29 | Emergency (ER) | payer MEDICAID ==
[2019-12-19 16:36] VITALS: BP 114/90
== END 2019-12-19 18:10 | disposition left against medical advice (07) ==
LOC: ED 16:29
DX: S09.90XA Unspecified injury of head, initial encounter (principal); X58.XXXA Exposure to other specified factors, initial encounter; Y92.9 Unspecified place or not applicable; Z53.21 Procedure and treatment not carried out due to patient leaving prior to being seen by health care provider
CPT/HCPCS: 99281

== ENCOUNTER 2019-12-28 10:38 | Emergency (ER) | payer MEDICAID ==
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
--- OUTSIDE RECORDS SUMMARY | 2019-12-28 11:08 | XMS REPORT | Continuity of Care Document ---
:2000 External Reference #:[id number] Author Name Guero Martinez NP Address [address], [place] [address] Care Team Providers Name Role Phone Deandre Ellis M.D. 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 No Information Available Social History Type Date Description Comments Sex Unknown Smokeless Tobacco Never Used Smokeless Tobacco ETOH Use Denies alcohol use Tobacco Use Start: Unknown Patient has never smoked Smoking Status Reviewed: 06/16/18 Patient has never smoked Exercise Type/Frequency Exercises regularly Allergies, Adverse Reactions, Alerts Description No Known Drug Allergies Medications Active Medications SIG Qnty Indications Ordering Provider Date Meclizine HCL 1 tab PO tid prn 30tabs Guero Martinez NP 12/22/2019 25mg Tablets Hydroxyzine HCL 1-2 tablets by 60tabs F41.9 Guero Martinez NP 12/22/2019 25mg mouth every 6 Tablets hours as needed for anxiety Fluticasone 2 sprays each 16units Guero Martinez NP 12/22/2019 Propionate nostril qd. 50mcg/Act Suspension Nasal [place] 12 Hour Unknown Immunizations Description No Information Available Vital Signs Date Vital Result Comment 06/16/2018 1:56pm Height 70 inches 5'10" Weight 138.00 lb Heart Rate 80 /min BP Systolic 138 mmHg BP Diastolic 78 mmHg Respiratory Rate 12 /min Pain Level 0 BMI (Body Mass Index) 19.8 kg/m2 05/25/2018 3:12pm Height 70 inches 5'10" Weight 135.50 lb Heart Rate 54 /min BP Systolic Sitting 104 mmHg BP Diastolic Sitting 78 mmHg Respiratory Rate 20 /min Body Temperature 97.7 F Pain Level 7 BMI (Body Mass Index) 19.4 kg/m2 Results Description No Information Available Procedures Description No Information Available Medical Devices Description No Information Available Encounters Description No Information Available Assessments Date Code Description Provider 12/22/2019 F07.81 Postconcussional syndrome Guero Martinez NP 12/22/2019 F41.9 Anxiety disorder, unspecified Guero Martinez NP Plan of Treatment 12/22/2019 - Guero Martinez NPF07.81 Postconcussional syndromeComments:The symptoms you are experiencing are consistent with post concussion syndrome. They may persist forseveral weeks to a couple of months. Try to get plenty of rest, stay well hydrated, and avoid screentime. You can continue using the meclizine three times daily. If you develop a "thunderclap" headache, worsening dizziness, intractable vomiting or other concerning symptoms please seek medical attention.F41.9 Anxiety disorder, unspecifiedNew Medication:Hydroxyzine HCL 25 mg - 1-2 tablets by mouth every 6 hours as needed for anxietyComments:I have prescribed the hydroxyzine that we discussed. You can take that up to four times daily as needed for anxiety.Follow up:f/u 4 months Functional Status Description No Information Available Mental Status Description No Information Available Referrals Description No Information Available
[2019-12-28 11:22] VITALS: BP 137/71
[2019-12-28] MEDS ORDERED: Ketorolac INJ* 30 MG/ML 1 ML VIAL IM ONE ×2 (11:26)
== END 2019-12-28 12:05 | disposition home or self-care (01) ==
LOC: UCEAST 10:38
DX: S16.1XXD Strain of muscle, fascia and tendon at neck level, subsequent encounter (principal); W19.XXXD Unspecified fall, subsequent encounter; T24.001D Burn of unspecified degree of unspecified site of right lower limb, except ankle and foot, subsequent encounter; X16.XXXD Contact with hot heating appliances, radiators and pipes, subsequent encounter; J32.9 Chronic sinusitis, unspecified; Z88.0 Allergy status to penicillin; Z91.030 Bee allergy status
CPT/HCPCS: 72050; 96372; 99212; G0463; J1885

== ENCOUNTER 2019-12-29 20:41 | Emergency (ER) | payer MEDICAID ==
--- OUTSIDE RECORDS SUMMARY | 2019-12-29 21:09 | XMS REPORT | Continuity of Care Document ---
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 Functional Status Description No Information Available Mental Status Description No Information Available Referrals Description No Information Available
--- NOTE | 2019-12-29 21:13 | ED ---
Dizziness - HPI Summary HPI Summary: This pt is a 19 Y/O M presenting to [facility] with a CC of dizziness as a result of a fall that occurred two weeks prior to today when he fell forwards and hit his head on the ground. Per the pt his friends stated that he had a syncopal episode during and after the fall. He states that at the time of the accident he was drinking an aggregated amount. He states that he has a persistent headache that is describes as tension in multiple different spots of his brain. He states that he feels a jolting sensation throughout today and he has been unable to concentrate. He states that last week his symptoms were milder. He states that he has been near syncope when he was standing today multiple different times. He has had intermittent nausea since the injury. He states that he has had neural issues such as twitching. He also reports dizziness. He states that he has neck pain that has not improved. He denies any vomiting, sore throat, fever, chills, myalgia, and diarrhea. He states that he has no aggravating or alleviating factors. He has a PMHx of asthma. He has received multiple different scans including a CT scan and X-Ray of his head and neck which found no abnormal results and there was no evidence of any brain bleeds or fractures. - History Of Current Complaint Chief Complaint: EDHeadInjury Stated Complaint: AMS PER PT Time Seen by Provider: 12/29/19 21:01 Hx Obtained From: Patient Last Known Well Date: 2 weeks prior to visit, unsure of date Onset/Duration: Still Present Timing: Constant Severity Initially: Mild Severity Currently: Moderate Character: Dizzy Aggravating Factor(s): Nothing Alleviating Factor(s): Nothing Associated Signs And Symptoms: Positive: Negative - vomiting, sore throat, fever , chills, myalgia, and diarrhea, Nausea. Negative: Vomiting, Diarrhea, Decreased Oral Intake, Fever, Chills - Allergies/Home Medications Allergies/Adverse Reactions: Allergies Allergy/AdvReac Type Severity Reaction Status Date / Time Penicillins Allergy Severe Unknown Verified 12/29/19 21:03 Reaction Details bee stings Allergy Severe Swelling Uncoded 12/29/19 21:03 Home Medications: Home Medications Albuterol HFA INHALER* [Ventolin HFA Inhaler*] 2 puff INH QID PRN 06/21/18 [ History Confirmed 12/29/19] Meclizine TAB* [Antivert 12.5 TAB*] 25 mg PO TID PRN #15 tab 12/16/19 [Rx Confirmed 12/29/19] Fluticasone NASAL SPRAY 50MCG* [Flonase NASAL SPRAY 50MCG*] 2 spray BOTH NARES DAILY 12/28/19 [History Confirmed 12/29/19] Ketorolac TAB * [Toradol TAB *] 10 mg PO TID #15 tab 12/28/19 [Rx Confirmed ] Mupirocin 2% OINT* [Bactroban 2 % Oint*] 1 applic TOPICAL BID #1 tube 12/28/19 [ Rx Confirmed 12/29/19] LORazepam TAB(*) [Ativan 0.5 MG TAB (*)] 0.5 mg PO Q6H PRN #15 tab MDD 2 [Rx] PMH/Surg Hx/FS Hx/Imm Hx Previously Healthy: Yes Endocrine/Hematology History: Denies: Hx Diabetes Cardiovascular History: Denies: Hx Hypertension, Hx Pacemaker/ICD, Other Cardiovascular Problems/ Disorders Respiratory History: Reports: Hx Asthma - Albuterol, hasn't used in months. Thinks he is outgrowning Denies: Other Respiratory Problems/Disorders GI History: Denies: Other GI Disorders History: Denies: Hx Renal Disease, Other Problems/Disorders Musculoskeletal History: Reports: Other Musculoskeletal History - Ganglion right wrist Sensory History: Denies: Hx Contacts or Glasses, Hx Deafness, Hx Hearing Aid Opthamlomology History: Denies: Hx Contacts or Glasses Neurological History: Reports: Hx Nerve Disease - ganglion cyst right wrist Denies: Other Neuro Impairments/Disorders Psychiatric History: Reports: Hx Anxiety Denies: Hx Panic Disorder - Cancer History Hx Chemotherapy: No Hx Radiation Therapy: No - Surgical History Surgical History: Yes Surgery Procedure, Year, and Place: HERNIA, vein surgery in leg Hx Anesthesia Reactions: No - Immunization History Immunizations Up to Date: Yes Infectious Disease History: No Infectious Disease History: Denies: Traveled Outside the [place] in Last 30 Days - Family History Known Family History: Positive: Diabetes Negative: Renal Disease - Social History Occupation: Student - [employer] Lives: With Family Alcohol Use: Daily Hx Substance Use: No Substance Use Type: Reports: None Hx Tobacco Use: No Smoking Status (MU): Never Smoked Tobacco Review of Systems Negative: Fever, Chills Negative: Sore Throat Positive: Nausea. Negative: Vomiting Negative: Myalgia Neurological/Mental Status: Other - dizziness Positive: Headache All Other Systems Reviewed And Are Negative: Yes Physical Exam - Summary Physical Exam Summary: Appearance: Well-appearing, Well-nourished, lying in bed comfortably Skin: Warm, dry, no obvious rash Eyes: sclera anicteric, no conjunctival pallor ENT: mucous membranes moist, pharynx appears normal Neck: Supple, nontender Respiratory: Clear to auscultation, no signs of respiratory distress Cardiovascular: Normal S1, S2. No murmurs. Normal distal pulses in tibial and radial bilaterally. Abdomen: Soft, nontender, normal active bowel sounds present Musculoskeletal: Normal, Strength/ROM Intact Neurological: A&Ox3, awake and alert, mentation is normal, speech is fluent and appropriate Psychiatric: affect is normal, does not appear anxious or depressed Triage Information Reviewed: Yes Vital Signs On Initial Exam: Initial Vitals Temp Pulse Resp BP Pulse Ox 98.1 F 92 16 111/74 97 12/29/19 20:49 12/29/19 20:49 12/29/19 20:49 12/29/19 20:49 12/29/19 20:49 Vital Signs Reviewed: Yes Procedures - Sedation Patient Received Moderate/Deep Sedation with Procedure: No Diagnostics - Vital Signs Vital Signs Temp Pulse Resp BP Pulse Ox 12/29/19 20:49 98.1 F 92 16 111/74 97 - Laboratory Lab Statement: Any lab studies that have been ordered have been reviewed, and results considered in the medical decision making process. Dizzy Course/Dx - Course Course Of Treatment: This pt is a 19 Y/O M presenting to [facility] with a CC of dizziness as a result of a fall that occurred two weeks prior to today when he fell forwards and hit his head on the ground. Per the pt his friends stated that he had a syncopal episode during and after the fall. He states that at the time of the accident he was drinking an aggregated amount. He states that he has a persistent headache that is describes as tension in multiple different spots of his brain. He states that he feels a jolting sensation throughout today and he has been unable to concentrate. He states that last week his symptoms were milder. He states that he has been near syncope when he was standing today multiple different times. He has received multiple different scans including a CT scan and X-Ray of his head and neck which found no abnormal results and there was no evidence of any brain bleeds or fractures. His PE found no abnormalities. He was also evaluated via an expanded neruo exam which found no abnormal factors. He will be discharged home with a Dx of a concussion. - Diagnoses Provider Diagnoses: Concussion - Critical Care Time Critical Care Statement: Critical care time is provided exclusive of any time spent performing procedures. Discharge ED - Sign-Out/Discharge Documenting (check all that apply): Patient Departure - discharge - Discharge Plan Condition: Good Disposition: HOME Prescriptions: LORazepam TAB(*) [Ativan 0.5 MG TAB (*)] 0.5 mg PO Q6H PRN #15 tab MDD 2 PRN Reason: Anxiety Patient Education Materials: Concussion (ED) Referrals: [facility] [Outside] - If Needed No Primary Care Phys,[facility] [Primary Care Provider] - - Billing Disposition and Condition Condition: GOOD Disposition: Home - Attestation Statements Document Initiated by Scribe: Yes Documenting Scribe: Christiano Venegas Provider For Whom Christianibe is Documenting (Include Credential): Carrillo Cervantes MD Scribe Attestation: Christiano Polanco, scrjacquied for Carrillo Cervantes MD on 12/30/19 at 0329. Scribe Documentation Reviewed: Yes Provider Attestation: The documentation as recorded by the Christiano vital accurately reflects the service I personally performed and the decisions made by me, Carrillo Cervantes MD Status of Scribe Document: Viewed
[2019-12-29 21:34] VITALS: BP 123/60
== END 2019-12-29 21:33 | disposition home or self-care (01) ==
LOC: ED 20:41
DX: S06.0X9A Concussion with loss of consciousness of unspecified duration, initial encounter (principal); R42 Dizziness and giddiness; R11.0 Nausea; R51 Headache; F41.9 Anxiety disorder, unspecified; W19.XXXA Unspecified fall, initial encounter; Y92.9 Unspecified place or not applicable; Z88.0 Allergy status to penicillin
CPT/HCPCS: 99282

== ENCOUNTER 2020-01-10 17:02 | Emergency (ER) | payer MEDICAID ==
[2020-01-10 17:31] VITALS: BP 122/66
== END 2020-01-10 18:11 | disposition home health service (06) ==
LOC: UCEAST 17:02

== ENCOUNTER 2020-01-10 18:30 | Emergency (ER) | payer MEDICAID ==
[2020-01-10 19:29] LABS: ABS Lymphocytes 2.2 10^3/ul (1.0-4.8); ABS Monocytes 0.3 10^3/ul (0-0.8); Eosinophil % 0.8 %; Hematocrit 41 % (42-52); Hemoglobin 13.9 g/dL (14.0-18.0); Lymphocyte % 45.9 %; Mean Corpuscular HGB Conc 34 g/dL (31-36); Mean Corpuscular Hemoglobin 27 pg (27-31); Mean Corpuscular Volume 80 fL (80-94); Mean Platelet Volume 7.7 fL (7.4-10.4); Nucleated Red Blood Cells % 0.1; Platelet Count 204 10^3/uL (150-450); Red Blood Count 5.05 10^6 /uL (4.18-5.48); Red Cell Distribution Width 13 % (10-15); White Blood Count 4.8 10^3/uL (3.5-10.8)
[2020-01-10 19:49] LABS: ALT 16 U/L (7-52); AST 19 U/L (13-39); Albumin 4.5 g/dL (3.2-5.2); Albumin/Globulin Ratio 1.8 (1-3); Alkaline Phosphatase 40 U/L (34-104); Anion Gap 5 mmol/L (2-11); BUN/Creatinine Ratio 12.9 (8-20); Blood Urea Nitrogen 13 mg/dL (6-24); C Reactive Protein < 1.00 mg/L (<8.01); CO2 Carbon Dioxide 26 mmol/L (22-32); Calcium 9.5 mg/dL (8.6-10.3); Chloride 108 mmol/L (101-111); EGFR African American 112.8 (>60); EGFR Non-African American 93.2 (>60); Globulin 2.5 g/dL (2-4); Glucose 115 mg/dL (70-100); Potassium 3.5 mmol/L (3.5-5.0); Sodium 139 mmol/L (135-145)
[2020-01-10] MEDS ORDERED: Iohexol 300 (CONTRAST) 10 ML SDV IV ONE (20:03)
[2020-01-10] MEDS ORDERED: LORazepam 1 mg TAB (*) PO ONE (21:28)
[2020-01-10 21:39] VITALS: BP 118/72
== END 2020-01-10 21:38 | disposition home or self-care (01) ==
LOC: ED 18:30